=== PATIENT | female | born 1945 | race Two or more races ===

== ENCOUNTER 2022-02-15 19:22 | Emergency (ER) | payer OTHER ==
[2022-02-15 19:46] VITALS: BP 163/99; PULSE 93; RESP 18; TEMP 98.7; BMI 28.7
[2022-02-15] MEDS ORDERED: KETOROLAC TROMETHAMINE 15 MG/ML VIAL IVPUSH ONE (20:49)
[2022-02-15] MEDS ORDERED: ACETAMINOPHEN 325 MG TABLET (FP) PO ONE (20:49)
[2022-02-15] MEDS ORDERED: LIDOCAINE 5% TOPICAL PATCH TP ONE (20:49)
[2022-02-15] MEDS ORDERED: METHOCARBAMOL 500 MG TABLET PO ONE (20:50)
[2022-02-15] MEDS ORDERED: KETOROLAC TROMETHAMINE 15 MG/ML VIAL IM ONE (20:57)
[2022-02-15] MEDS ORDERED: METHOCARBAMOL 500 MG TABLET ONE (21:00)
[2022-02-15] MEDS ORDERED: ACETAMINOPHEN 325 MG TABLET (FP) ONE (21:00)
[2022-02-15] MEDS ORDERED: LIDOCAINE 5% TOPICAL PATCH ONE (21:01)
[2022-02-15] MEDS ORDERED: KETOROLAC TROMETHAMINE 15 MG/ML VIAL ONE (21:01)
[2022-02-15] MEDS ORDERED: LIDOCAINE PATCH REMOVAL MC SCH (22:00)
== END 2022-02-15 21:14 | disposition home or self-care (01) ==
LOC: JER 19:22
PROC: 3E0233Z Introduction of Anti-inflammatory into Muscle, Percutaneous Approach (ICD-10-PCS; principal; 2022-02-15)
DX: M25.561 Pain in right knee (principal); M25.562 Pain in left knee; M25.511 Pain in right shoulder
CPT/HCPCS: 99284-25

== ENCOUNTER 2022-04-23 06:10 | Day surgery (SDC) | payer OTHER ==
[2022-04-22 09:03] VITALS: BMI 21.1
[2022-04-23] MEDS ORDERED: CELECOXIB 200 MG CAPSULE PO ONE (07:09)
[2022-04-23] MEDS ORDERED: TRANEXAMIC ACID 1000 MG/10 ML VIAL IVPUSH ONE (07:09)
[2022-04-23] MEDS ORDERED: CEFAZOLIN 2 GM in DEXTROSE 5%-WATER - 50 ML IVPB ONE (07:09)
[2022-04-23] MEDS ORDERED: ceFAZolin SODIUM 1 GM VIAL ONE ×3 (07:15→08:24)
[2022-04-23] MEDS ORDERED: VANCOMYCIN 1,000 MG VIAL (RESTRICTED TO ID ONLY) ONE (07:15)
[2022-04-23] MEDS ORDERED: BUPIVACAINE HCL/PF 0.5% (5MG/ML) 10 ML VIAL ONE (07:22)
[2022-04-23] MEDS ORDERED: SODIUM CHLORIDE 0.9% P/F 10 ML VIAL IJ ONE (07:22)
[2022-04-23] MEDS ORDERED: BUPIVACAINE LIPOSOME/PF (EXPAREL) 266 MG/20 ML VIAL ONE (07:22)
[2022-04-23] MEDS ORDERED: MIDAZOLAM HCL 2 MG/2 ML SINGLE DOSE VIAL ONE (07:22)
[2022-04-23] MEDS ORDERED: ONDANSETRON 4 MG/2 ML VIAL IVPUSH PRN ×2 (07:49→10:16)
[2022-04-23] MEDS ORDERED: LACTATED RINGERS SOLUTION 1,000 ML IV SCH (08:00)
[2022-04-23] MEDS ORDERED: PROPOFOL 60 ML ONE (08:24)
[2022-04-23] MEDS ORDERED: PHENYLEPHRINE HCL 10 MG/1 ML SINGLE DOSE VIAL ONE (08:24)
[2022-04-23] MEDS ORDERED: SUCCINYLCHOLINE CHLORIDE 200 MG/10 ML SYRINGE ONE (08:24)
[2022-04-23] MEDS ORDERED: DEXAMETHASONE SOD PHOSPHATE 4 MG/1 ML VIAL ONE (08:24)
[2022-04-23] MEDS ORDERED: KETOROLAC TROMETHAMINE 30 MG/1 ML VIAL ONE (08:24)
[2022-04-23] MEDS ORDERED: oxyCODONE HCL 5 MG TABLET PO PRN ×2 (10:16)
[2022-04-23] MEDS: CEFAZOLIN 2 GM in DEXTROSE 5%-WATER - 50 ML IVPB SCH (18:22)
[2022-04-23] MEDS ORDERED: LORazepam 2 MG/ML SDV VIAL IVPUSH ONE (21:49)
[2022-04-23] MEDS: LABETALOL HCL 100 MG TABLET (FP) PO SCH (22:00)
[2022-04-23] MEDS: SENNOSIDES/DOCUSATE COMBO (SENNA PLUS) TABLET (UD) PO SCH (22:00)
[2022-04-23] MEDS: MULTIVITAMINS (DAILY MVI) TABLET (FP) PO SCH (22:34)
[2022-04-23] MEDS: PANTOPRAZOLE 40 MG TABLET PO SCH (22:34)
[2022-04-23] MEDS: ACETAMINOPHEN 500 MG TABLET (FP) PO SCH ×2 (22:34→22:37)
[2022-04-24] MEDS: CEFAZOLIN 2 GM in DEXTROSE 5%-WATER - 50 ML IVPB SCH
[2022-04-24] MEDS ORDERED: HALOPERIDOL LACTATE 5 MG/ML IM ONE ×3 (00:01→04:36)
[2022-04-24] MEDS: HALOPERIDOL LACTATE 5 MG/ML IM ONE ×2 (00:05→00:06)
[2022-04-24] MEDS: ACETAMINOPHEN 500 MG TABLET (FP) PO SCH ×4 (04:30→23:22)
[2022-04-24] MEDS ORDERED: LORazepam 2 MG/ML SDV VIAL IVPUSH ONE (04:34)
[2022-04-24] MEDS: LABETALOL HCL 100 MG TABLET (FP) PO SCH ×2 (09:15→21:48)
[2022-04-24] MEDS: ASPIRIN 325 MG TABLET PO SCH (09:15)
[2022-04-24 10:52] LABS: HEMATOCRIT 22.6 % (32.4-45.2); HEMOGLOBIN 7.6 G/dL (10.7-15.3); MCH 31.7 pg (25.7-33.7); MCHC 33.8 g/dl (32.0-36.0); MEAN CELL VOLUME 93.7 fl (80-96); MEAN PLT VOLUME 8.7 fl (7.5-11.1); PLATELET COUNT 176.4 10^3/uL (134-434); RBC 2.41 10^6/uL (3.60-5.2); RDW 13.9 % (11.6-15.6); WHITE BLOOD COUNT 7.8 10^3/uL (4.0-10.8)
[2022-04-24 10:57] LABS: ALBUMIN 3.3 g/dl (3.4-5.0); BILIRUBIN,TOTAL 0.7 mg/dl (0.2-1); CALCIUM 8.5 mg/dl (8.5-10); CREATININE 1.4 mg/dl (0.55-1.3); TOT PROT 5.8 g/dl (6.4-8.2)
[2022-04-24 11:59] LABS: PLATELET ESTIMATE ADEQUATE
[2022-04-24 12:41] LABS: EPITHELIAL CELLS MANY /hpf
[2022-04-24] MEDS: SENNOSIDES/DOCUSATE COMBO (SENNA PLUS) TABLET (UD) PO SCH ×2 (13:19→21:52)
[2022-04-24] MEDS: PANTOPRAZOLE 40 MG TABLET PO SCH (13:20)
[2022-04-24] MEDS: MULTIVITAMINS (DAILY MVI) TABLET (FP) PO SCH (13:20)
[2022-04-24] MEDS: ACETAMINOPHEN 1000 MG/100 ML BAG IVPB PRN ×2 (15:00→21:48)
[2022-04-24] MEDS ORDERED: IRON SUCROSE INJECTION 200 MG in SODIUM CHLORIDE 90 ML IVPB ONE (18:00)
[2022-04-25] MEDS: ACETAMINOPHEN 500 MG TABLET (FP) PO SCH ×5 (08:14→22:02)
[2022-04-25] MEDS: ASPIRIN 325 MG TABLET PO SCH (08:19)
[2022-04-25 08:35] LABS: ALBUMIN 3.2 g/dl (3.4-5.0); BILIRUBIN,TOTAL 1.1 mg/dl (0.2-1); CALCIUM 8.6 mg/dl (8.5-10); CREATININE 1.5 mg/dl (0.55-1.3); TOT PROT 5.7 g/dl (6.4-8.2)
[2022-04-25 08:57] LABS: HEMATOCRIT 26.4 % (32.4-45.2); HEMOGLOBIN 8.8 G/dL (10.7-15.3); MCH 31.2 pg (25.7-33.7); MCHC 33.4 g/dl (32.0-36.0); MEAN CELL VOLUME 93.3 fl (80-96); MEAN PLT VOLUME 9.3 fl (7.5-11.1); RBC 2.83 10^6/uL (3.60-5.2); RDW 14.4 % (11.6-15.6)
[2022-04-25] MEDS: PANTOPRAZOLE 40 MG TABLET PO SCH (09:31)
[2022-04-25] MEDS: MULTIVITAMINS (DAILY MVI) TABLET (FP) PO SCH (09:32)
[2022-04-25] MEDS: LABETALOL HCL 100 MG TABLET (FP) PO SCH ×2 (09:32→22:03)
[2022-04-25] MEDS: SENNOSIDES/DOCUSATE COMBO (SENNA PLUS) TABLET (UD) PO SCH ×2 (09:33→22:03)
[2022-04-25 11:51] LABS: PLATELET ESTIMATE ADEQUATE
[2022-04-25] MEDS ORDERED: D5-1/2NS+20 MEQ KCL - 20 MEQ/1,000 ML INFUS.BAG IV SCH (15:15)
[2022-04-25] MEDS: PANTOPRAZOLE SODIUM 40 MG VIAL IVPUSH SCH (16:01)
[2022-04-26] MEDS: ACETAMINOPHEN 500 MG TABLET (FP) PO SCH (04:30)
[2022-04-26] MEDS: ASPIRIN 325 MG TABLET PO SCH (08:12)
[2022-04-26 08:36] LABS: ALBUMIN 2.9 g/dl (3.4-5.0); BILIRUBIN,TOTAL 1.3 mg/dl (0.2-1); CALCIUM 8.4 mg/dl (8.5-10); CREATININE 1.7 mg/dl (0.55-1.3); TOT PROT 5.5 g/dl (6.4-8.2)
[2022-04-26] MEDS: SENNOSIDES/DOCUSATE COMBO (SENNA PLUS) TABLET (UD) PO SCH (09:03)
[2022-04-26] MEDS: LABETALOL HCL 100 MG TABLET (FP) PO SCH (09:03)
[2022-04-26] MEDS: MULTIVITAMINS (DAILY MVI) TABLET (FP) PO SCH (09:03)
[2022-04-26] MEDS: PANTOPRAZOLE SODIUM 40 MG VIAL IVPUSH SCH (09:03)
[2022-04-26 10:05] LABS: BASO % 0.3 % (0-2.0); HEMATOCRIT 25.4 % (32.4-45.2); HEMOGLOBIN 8.3 GM/dL (10.7-15.3); LYMPH % 16.6 % (8-40); MCH 30.6 pg (25.7-33.7); MCHC 32.8 g/dl (32.0-36.0); MEAN CELL VOLUME 93.3 fl (80-96); MEAN PLT VOLUME 9.5 fl (7.5-11.1); MONO % 12.1 % (3.8-10.2); PLATELET COUNT 204 10^3/uL (134-434); RBC 2.72 M/mm3 (3.60-5.2); RDW 14.2 % (11.6-15.6)
[2022-04-26] MEDS ORDERED: D5-NS + 20 MEQ KCL - 20 MEQ/1,000 ML INFUS.BAG IV SCH (10:45)
[2022-04-26] MEDS ORDERED: ACETAMINOPHEN 325 MG TABLET (FP) PO PRN (12:37)
[2022-04-26 14:30] VITALS: BP 162/92; PULSE 107; RESP 16; TEMP 98.5
== END 2022-04-26 16:47 | disposition home health service (06) ==
LOC: FM/S 06:10 → FASUSAT 06:10 → FM/S 11:42 → FASUSAT 04-26 16:47
PROVIDERS: ATTEND Orthopaedic Surgery
PROC: 8E0Y0CZ Robotic Assisted Procedure of Lower Extremity, Open Approach (ICD-10-PCS; 2022-04-23)
PROC: 0SRC0JA Replacement of Right Knee Joint with Synthetic Substitute, Uncemented, Open Approach (ICD-10-PCS; principal; 2022-04-23 08:33)
DX: M17.11 Unilateral primary osteoarthritis, right knee (principal); I10 Essential (primary) hypertension; I25.2 Old myocardial infarction; N17.9 Acute kidney failure, unspecified; E87.1 Hypo-osmolality and hyponatremia; E87.22 Chronic metabolic acidosis
CPT/HCPCS: 20985; 27447; C1776; S2900; 36415; 70450-TC; 71045-TC-FY; 73560-TC-RT-FY; 76775-TC; 76856-TC; 80053; 81003; 81015; 82607; 82728; 82962; 83540; 83550; 83690; 84443; 84484; 85025; 86780; 87086; 93005; 94760; 97010-GP; 97116-GP; 97162-GP; C1713; J1756

== ENCOUNTER 2022-07-04 07:37 | Inpatient (IN) | payer OTHER ==
[2022-07-04] MEDS ORDERED: LIDOCAINE 5% TOPICAL PATCH TP ONE (08:41)
[2022-07-04] MEDS ORDERED: ACETAMINOPHEN 1000 MG/100 ML BAG IVPB ONE (08:41)
[2022-07-04] MEDS ORDERED: ACETAMINOPHEN INJECTION 100 ML IVPB ONE (09:04)
[2022-07-04] MEDS ORDERED: LIDOCAINE 5% TOPICAL PATCH ONE (09:04)
[2022-07-04 10:11] LABS: BASO % 0.4 % (0-2.0); EOS % 1.8 % (0-4.5); HEMATOCRIT 34.3 % (32.4-45.2); HEMOGLOBIN 11.5 GM/dL (10.7-15.3); LYMPH % 22.4 % (8-40); MCH 31.5 pg (25.7-33.7); MCHC 33.6 g/dl (32.0-36.0); MEAN CELL VOLUME 93.5 fl (80-96); MEAN PLT VOLUME 8.6 fl (7.5-11.1); MONO % 10.3 % (3.8-10.2); NEUT % 65.1 % (42.8-82.8); PLATELET COUNT 278 10^3/uL (134-434); RBC 3.67 M/mm3 (3.60-5.2); RDW 14.8 % (11.6-15.6); WHITE BLOOD COUNT 7.6 K/mm3 (4.0-10.0)
[2022-07-04 10:31] LABS: CALCIUM 9.6 mg/dL (8.5-10.1)
[2022-07-04 10:32] LABS: ALBUMIN 4.2 g/dl (3.4-5.0); BLOOD UREA NITROGEN 13.5 mg/dL (7-18)
[2022-07-04 10:36] LABS: BILIRUBIN,TOTAL 0.7 mg/dL (0.2-1); TOT PROT 7.6 g/dl (6.4-8.2)
[2022-07-04 12:51] LABS: INR 1.03 (0.83-1.09); PROTHROMBIN TIME (PATIENT) 11.9 SEC (9.7-13.0)
[2022-07-04 12:53] LABS: ACTIVATED PTT 26.3 SECONDS (25.2-36.5)
[2022-07-04 13:05] LABS: CALCIUM 9.7 mg/dL (8.5-10.1)
[2022-07-04 13:06] LABS: BLOOD UREA NITROGEN 12.7 mg/dL (7-18)
[2022-07-04] MEDS ORDERED: morphine CARPU-JECT 4 MG/1 ML DISP.SYRIN IVPUSH ONE (16:01)
[2022-07-04] MEDS ORDERED: morphine SULFATE 4 MG/ML VIAL ONE (16:04)
[2022-07-04] MEDS ORDERED: LABETALOL HCL 100 MG TABLET (FP) PO ONE (16:10)
[2022-07-04] MEDS ORDERED: LABETALOL HCL 100 MG TABLET (FP) ONE (16:30)
[2022-07-04] MEDS ORDERED: ONDANSETRON 4 MG/2 ML VIAL IVPUSH ONE (17:23)
[2022-07-04] MEDS: LABETALOL HCL 100 MG TABLET (FP) PO SCH (21:25)
[2022-07-04] MEDS ORDERED: LIDOCAINE PATCH REMOVAL MC SCH (22:00)
[2022-07-05] MEDS ORDERED: ACETAMINOPHEN 325 MG TABLET (FP) PO ONE (03:45)
[2022-07-05] MEDS ORDERED: oxyCODONE HCL 5 MG TABLET PO ONE (03:45)
[2022-07-05 05:11] VITALS: BMI 20.2
[2022-07-05 08:57] LABS: HEMATOCRIT 33.8 % (32.4-45.2); HEMOGLOBIN 11.2 GM/dL (10.7-15.3); MCH 31.1 pg (25.7-33.7); MCHC 33.2 g/dl (32.0-36.0); MEAN CELL VOLUME 93.7 fl (80-96); MEAN PLT VOLUME 8.2 fl (7.5-11.1); PLATELET COUNT 266 10^3/uL (134-434); RDW 14.6 % (11.6-15.6); WHITE BLOOD COUNT 5.7 K/mm3 (4.0-10.0)
[2022-07-05 09:17] LABS: CALCIUM 9.5 mg/dL (8.5-10.1)
[2022-07-05 09:18] LABS: BLOOD UREA NITROGEN 16.4 mg/dL (7-18)
[2022-07-05 09:21] LABS: CREATININE 1.1 mg/dL (0.55-1.3)
[2022-07-05] MEDS: LABETALOL HCL 100 MG TABLET (FP) PO SCH (10:10)
[2022-07-05] MEDS: LIDOCAINE 5% TOPICAL PATCH TP SCH (13:21)
[2022-07-05] MEDS: ACETAMINOPHEN 325 MG TABLET (FP) PO PRN ×2 (13:22→22:22)
[2022-07-05] MEDS: ENOXAPARIN NA (PORCINE) 40 MG/0.4 ML DISP.SYRIN SQ SCH (13:27)
[2022-07-05] MEDS: NAPROXEN 500 MG TABLET PO PRN (15:37)
[2022-07-05] MEDS: LABETALOL HCL 200 MG TABLET (FP) PO SCH (22:23)
[2022-07-06] MEDS ORDERED: LIDOCAINE PATCH REMOVAL MC SCH (01:00)
[2022-07-06 02:37] VITALS: RESP 18
[2022-07-06] MEDS: LABETALOL HCL 200 MG TABLET (FP) PO SCH (09:06)
[2022-07-06] MEDS: LIDOCAINE 5% TOPICAL PATCH TP SCH (09:06)
[2022-07-06] MEDS: ENOXAPARIN NA (PORCINE) 40 MG/0.4 ML DISP.SYRIN SQ SCH (09:07)
[2022-07-06] MEDS: NAPROXEN 500 MG TABLET PO PRN ×2 (09:08→17:21)
[2022-07-06 10:44] VITALS: PULSE 83
[2022-07-06] MEDS ORDERED: amLODIPine BESYLATE 10 MG TABLET (FP) PO ONE (11:51)
[2022-07-06] MEDS ORDERED: amLODIPine BESYLATE 5 MG TABLET (FP) PO ONE (11:59)
[2022-07-06 13:35] VITALS: BP 150/84; TEMP 99.1
== END 2022-07-06 20:03 | disposition home or self-care (01) | DRG 184 ==
LOC: JER 07:37 → JERBED 15:50 → J6S 20:13
PROVIDERS: ADMIT Internal Medicine; ATTEND Internal Medicine
DX: S22.41XA Multiple fractures of ribs, right side, initial encounter for closed fracture (principal); J93.9 Pneumothorax, unspecified; J98.11 Atelectasis; W01.0XXA Fall on same level from slipping, tripping and stumbling without subsequent striking against object, initial encounter; Y93.89 Activity, other specified; Y92.009 Unspecified place in unspecified non-institutional (private) residence as the place of occurrence of the external cause; Y99.8 Other external cause status; I10 Essential (primary) hypertension
CPT/HCPCS: 0241U-QW; 36415; 70450-TC; 71045-TC-FY; 71260-TC; 72125-TC; 72131-TC; 73030-TC-RT-FY; 74177-TC; 80048; 80053; 84484; 85025; 85027; 85610; 85730; 93005; 93010; 93306-TC; 99285-25; C9803-CS; Q9967; U0003; U0005

== ENCOUNTER 2022-07-12 05:15 | Observation (INO) | payer OTHER ==
[2022-07-12] MEDS ORDERED: ONDANSETRON 4 MG/2 ML VIAL IVPUSH ONE (06:29)
[2022-07-12] MEDS ORDERED: SODIUM CHLORIDE 0.9% 500 ML INFUS.BAG IV ONE (06:29)
[2022-07-12] MEDS ORDERED: MECLIZINE HCL 25 MG TABLET (FP) PO ONE ×2 (06:29→12:13)
[2022-07-12] MEDS ORDERED: ACETAMINOPHEN 1000 MG/100 ML BAG IVPB ONE (06:30)
[2022-07-12 06:32] LABS: BASO % 0.7 % (0-2.0); EOS % 3.6 % (0-4.5); HEMATOCRIT 34.5 % (32.4-45.2); HEMOGLOBIN 11.3 GM/dL (10.7-15.3); LYMPH % 31.6 % (8-40); MCH 30.5 pg (25.7-33.7); MCHC 32.7 g/dl (32.0-36.0); MEAN CELL VOLUME 93.3 fl (80-96); MEAN PLT VOLUME 8.5 fl (7.5-11.1); MONO % 8.5 % (3.8-10.2); NEUT % 55.6 % (42.8-82.8); PLATELET COUNT 279 10^3/uL (134-434); RBC 3.69 M/mm3 (3.60-5.2); RDW 14.9 % (11.6-15.6)
[2022-07-12 06:39] LABS: INR 1.03 (0.83-1.09)
[2022-07-12] MEDS ORDERED: MECLIZINE HCL 25 MG TABLET (FP) ONE ×2 (06:41→13:26)
[2022-07-12] MEDS ORDERED: ACETAMINOPHEN INJECTION 100 ML IVPB ONE (06:41)
[2022-07-12 06:42] LABS: ACTIVATED PTT 25.6 SECONDS (25.2-36.5)
[2022-07-12] MEDS ORDERED: ONDANSETRON 4 MG/2 ML VIAL ONE (06:42)
[2022-07-12 06:55] LABS: ALBUMIN 4.2 g/dl (3.4-5.0); CALCIUM 9.8 mg/dL (8.5-10.1)
[2022-07-12 06:57] LABS: BLOOD UREA NITROGEN 18.4 mg/dL (7-18)
[2022-07-12 06:59] LABS: CREATININE 1.2 mg/dL (0.55-1.3)
[2022-07-12 07:01] LABS: BILIRUBIN,TOTAL 0.4 mg/dL (0.2-1); TOT PROT 7.2 g/dl (6.4-8.2)
[2022-07-12 07:54] LABS: EPI CELLS 12 /uL (0-25.1); HYALINE CASTS 0 /uL (0-3.1); PH,URINE 6.5 (5.0-8.0); URINE APPEARANCE CLEAR; URINE BACTERIA 93 /uL (0-1359); URINE BILIRUBIN NEGATIVE (NEGATIVE); URINE COLOR YELLOW; URINE GLUCOSE (UA) NEGATIVE (NEGATIVE); URINE KETONE NEGATIVE (NEGATIVE); URINE LEUK ESTERASE TRACE (NEGATIVE); URINE NITRITE NEGATIVE (NEGATIVE); URINE PROTEIN TRACE (NEGATIVE); URINE RBC 3 /uL (0-23.9); URINE UROBILINOGEN 0.2 mg/dL (0.2-1.0); URINE WBC 6 /uL (0-25.8)
[2022-07-12] MEDS ORDERED: CEFTRIAXONE 1,000 MG in DEXTROSE 5%-WATER - 50 ML IVPB ONE (11:56)
[2022-07-12] MEDS ORDERED: HALOPERIDOL LACTATE 5 MG/ML IM ONE (12:12)
[2022-07-12] MEDS ORDERED: METOCLOPRAMIDE HCL INJECTION 10 MG/2 ML VIAL IVPB ONE (12:13)
[2022-07-12] MEDS ORDERED: LORazepam 2 MG/ML SDV VIAL IVPUSH ONE (12:55)
[2022-07-12] MEDS ORDERED: ACETAMINOPHEN 325 MG TABLET (FP) PO PRN (12:58)
[2022-07-12] MEDS ORDERED: METOCLOPRAMIDE HCL INJECTION 10 MG/2 ML VIAL ONE (13:26)
[2022-07-12] MEDS ORDERED: LORazepam 0.5 MG TABLET ONE (13:26)
[2022-07-12] MEDS ORDERED: FUROSEMIDE 40 MG/4 ML INJECTABLE VIAL ONE (13:27)
[2022-07-12] MEDS ORDERED: CEFTRIAXONE 1 GM/50 ML BAG ONE (13:27)
[2022-07-12] MEDS: FUROSEMIDE 40 MG TABLET (FP) PO SCH (14:04)
[2022-07-12] MEDS: LABETALOL HCL 200 MG TABLET (FP) PO SCH (21:06)
[2022-07-12] MEDS: HEPARIN NA (PORCINE) 5,000 UNITS/ML 1ML VIAL SQ SCH (21:06)
[2022-07-12] MEDS: LIDOCAINE PATCH REMOVAL MC SCH (21:49)
[2022-07-13] MEDS: FUROSEMIDE 40 MG TABLET (FP) PO SCH (10:26)
[2022-07-13] MEDS: HEPARIN NA (PORCINE) 5,000 UNITS/ML 1ML VIAL SQ SCH ×2 (10:27→21:19)
[2022-07-13] MEDS: amLODIPine BESYLATE 5 MG TABLET (FP) PO SCH (10:27)
[2022-07-13] MEDS: LABETALOL HCL 200 MG TABLET (FP) PO SCH ×2 (10:27→21:19)
[2022-07-13] MEDS: LIDOCAINE 5% TOPICAL PATCH TP SCH (10:27)
[2022-07-13] MEDS: SERTRALINE HCL 25 MG TABLET (FP) PO SCH (11:49)
[2022-07-13 12:52] LABS: MAGNESIUM 2.2 mg/dL (1.8-2.4)
[2022-07-13 13:00] LABS: N-TERMINAL BNP 601.3 pg/ml (5-450)
[2022-07-13 14:15] VITALS: BMI 22.2
[2022-07-13] MEDS: LIDOCAINE PATCH REMOVAL MC SCH (21:19)
[2022-07-13] MEDS: MECLIZINE HCL 25 MG TABLET (FP) PO PRN (23:39)
[2022-07-14 06:03] VITALS: RESP 18
[2022-07-14 07:34] LABS: CALCIUM 9.8 mg/dL (8.5-10.1)
[2022-07-14 07:35] LABS: BLOOD UREA NITROGEN 36.6 mg/dL (7-18)
[2022-07-14 07:37] LABS: CREATININE 1.5 mg/dL (0.55-1.3)
[2022-07-14] MEDS: HEPARIN NA (PORCINE) 5,000 UNITS/ML 1ML VIAL SQ SCH (10:07)
[2022-07-14] MEDS: amLODIPine BESYLATE 5 MG TABLET (FP) PO SCH (10:07)
[2022-07-14] MEDS: SERTRALINE HCL 25 MG TABLET (FP) PO SCH (10:07)
[2022-07-14] MEDS: FUROSEMIDE 40 MG TABLET (FP) PO SCH (10:07)
[2022-07-14] MEDS: LABETALOL HCL 200 MG TABLET (FP) PO SCH (10:07)
[2022-07-14] MEDS: MECLIZINE HCL 25 MG TABLET (FP) PO PRN (10:08)
[2022-07-14] MEDS: LIDOCAINE 5% TOPICAL PATCH TP SCH (10:08)
[2022-07-14] MEDS ORDERED: SODIUM CHLORIDE 0.45% 1,000 ML IV SCH (10:45)
[2022-07-14 15:00] VITALS: BP 132/80; PULSE 95; TEMP 97.7
== END 2022-07-14 18:26 | disposition home or self-care (01) ==
LOC: JER 05:15 → JERBED 09:56 → J4W 15:19
PROVIDERS: ADMIT Internal Medicine; ATTEND Internal Medicine
PROC: 3E033NZ Introduction of Analgesics, Hypnotics, Sedatives into Peripheral Vein, Percutaneous Approach (ICD-10-PCS; principal; 2022-07-12)
PROC: 3E03329 Introduction of Other Anti-infective into Peripheral Vein, Percutaneous Approach (ICD-10-PCS; 2022-07-12)
PROC: 3E023GC Introduction of Other Therapeutic Substance into Muscle, Percutaneous Approach (ICD-10-PCS; 2022-07-12)
PROC: 3E023GC Introduction of Other Therapeutic Substance into Muscle, Percutaneous Approach (ICD-10-PCS; 2022-07-12)
PROC: 3E03329 Introduction of Other Anti-infective into Peripheral Vein, Percutaneous Approach (ICD-10-PCS; 2022-07-12)
PROC: 3E0337Z Introduction of Electrolytic and Water Balance Substance into Peripheral Vein, Percutaneous Approach (ICD-10-PCS; 2022-07-12)
DX: J93.83 Other pneumothorax (principal); R07.81 Pleurodynia; I10 Essential (primary) hypertension; F41.8 Other specified anxiety disorders; R42 Dizziness and giddiness; S22.49XS Multiple fractures of ribs, unspecified side, sequela; W18.39XS Other fall on same level, sequela; R07.9 Chest pain, unspecified
CPT/HCPCS: 0241U-QW; 36415; 70450-TC; 70551-TC; 71045-TC-FY; 80048; 80053; 80061; 81003; 82550; 82962; 83036; 83690; 83735; 83880; 84439; 84443; 84484; 85025; 85610; 85730; 87086; 87186; 93005; 93010; 94010; 96361; 96365; 96372; 96375; 97116-GP; 97162-GP; 99285-25; G0378; J1644

== ENCOUNTER 2022-10-20 16:29 | Observation (INO) | payer OTHER ==
[2022-10-20] MEDS ORDERED: METOPROLOL TARTRATE 25 MG TABLET (FP) PO ONE (17:30)
[2022-10-20] MEDS ORDERED: METOPROLOL TARTRATE 5 MG/5 ML VIAL IVPUSH ONE (17:44)
[2022-10-20] MEDS ORDERED: ACETAMINOPHEN 1000 MG/100 ML BAG IVPB ONE (17:44)
[2022-10-20] MEDS ORDERED: METOCLOPRAMIDE HCL INJECTION 10 MG/2 ML VIAL IVPUSH ONE (17:45)
[2022-10-20] MEDS ORDERED: METOCLOPRAMIDE HCL INJECTION 10 MG/2 ML VIAL ONE (18:19)
[2022-10-20] MEDS ORDERED: ACETAMINOPHEN INJECTION 100 ML IVPB ONE (18:19)
[2022-10-20] MEDS ORDERED: METOPROLOL TARTRATE 5 MG/5 ML VIAL ONE (18:19)
[2022-10-20 18:36] LABS: BASO % 0.4 % (0-2.0); EOS % 1.6 % (0-4.5); HEMATOCRIT 33.1 % (32.4-45.2); HEMOGLOBIN 11.1 GM/dL (10.7-15.3); LYMPH % 22.4 % (8-40); MCH 30.6 pg (25.7-33.7); MCHC 33.6 g/dl (32.0-36.0); MEAN CELL VOLUME 90.9 fl (80-96); MEAN PLT VOLUME 7.6 fl (7.5-11.1); MONO % 9.1 % (3.8-10.2); NEUT % 66.5 % (42.8-82.8); PLATELET COUNT 277 10^3/uL (134-434); RBC 3.64 M/mm3 (3.60-5.2); RDW 14.8 % (11.6-15.6)
[2022-10-20 18:36] LABS: PH,URINE 5.5 (5.0-8.0); URINE APPEARANCE CLEAR; URINE BILIRUBIN NEGATIVE (NEGATIVE); URINE COLOR YELLOW; URINE GLUCOSE (UA) NEGATIVE (NEGATIVE); URINE KETONE NEGATIVE (NEGATIVE); URINE LEUK ESTERASE NEGATIVE (NEGATIVE); URINE NITRITE NEGATIVE (NEGATIVE); URINE PROTEIN NEGATIVE (NEGATIVE); URINE UROBILINOGEN 0.2 mg/dL (0.2-1.0)
[2022-10-20 18:47] LABS: PROTHROMBIN TIME (PATIENT) 11.6 SEC (9.7-13.0)
[2022-10-20 18:50] LABS: ACTIVATED PTT 24.6 SECONDS (25.2-36.5)
[2022-10-20 18:56] LABS: CALCIUM 9.4 mg/dL (8.5-10.1); MAGNESIUM 1.7 mg/dL (1.8-2.4)
[2022-10-20 18:57] LABS: ALBUMIN 4.1 g/dl (3.4-5.0); BLOOD UREA NITROGEN 18.8 mg/dL (7-18)
[2022-10-20 18:59] LABS: CREATININE 1.1 mg/dL (0.55-1.3)
[2022-10-20 19:01] LABS: BILIRUBIN,TOTAL 0.2 mg/dL (0.2-1); TOT PROT 7.1 g/dl (6.4-8.2)
[2022-10-20] MEDS ORDERED: MAGNESIUM SULF 50% (8.12 MEQ/2 ML-1 GM VIAL) IVPB ONE (20:10)
[2022-10-20] MEDS ORDERED: MAGNESIUM SULFATE IN WATER 2 GM/50 ML IVPB IVPB ONE (20:22)
[2022-10-20] MEDS ORDERED: DOCUSATE SODIUM 100 MG CAPSULE (FP) PO PRN (20:33)
[2022-10-20] MEDS: ACETAMINOPHEN 325 MG TABLET (FP) PO PRN (23:43)
[2022-10-21 00:10] VITALS: BMI 23.4
[2022-10-21 08:09] LABS: BASO % 0.8 % (0-2.0); EOS % 4.2 % (0-4.5); HEMATOCRIT 34.2 % (32.4-45.2); HEMOGLOBIN 11.3 GM/dL (10.7-15.3); LYMPH % 29.9 % (8-40); MCH 30.6 pg (25.7-33.7); MEAN CELL VOLUME 92.8 fl (80-96); MEAN PLT VOLUME 8.4 fl (7.5-11.1); MONO % 10.3 % (3.8-10.2); NEUT % 54.8 % (42.8-82.8); PLATELET COUNT 279 10^3/uL (134-434); RBC 3.68 M/mm3 (3.60-5.2); RDW 14.8 % (11.6-15.6); WHITE BLOOD COUNT 5.9 K/mm3 (4.0-10.0)
[2022-10-21 08:40] LABS: CALCIUM 9.3 mg/dL (8.5-10.1)
[2022-10-21 08:41] LABS: BLOOD UREA NITROGEN 15.4 mg/dL (7-18); MAGNESIUM 2.2 mg/dL (1.8-2.4)
[2022-10-21 08:45] LABS: PHOSPHOROUS 3.2 mg/dL (2.5-4.9)
[2022-10-21] MEDS ORDERED: HEPARIN NA (PORCINE) 5,000 UNITS/ML 1ML VIAL SQ SCH (10:00)
[2022-10-21] MEDS ORDERED: amLODIPine BESYLATE 10 MG TABLET (FP) PO SCH (10:00)
[2022-10-21] MEDS: SERTRALINE HCL 25 MG TABLET (FP) PO SCH (10:04)
[2022-10-21] MEDS ORDERED: ACETAMINOPHEN 325 MG TABLET (FP) ONE (12:48)
[2022-10-21] MEDS: ACETAMINOPHEN 325 MG TABLET (FP) PO PRN ×2 (13:03→18:46)
[2022-10-21 14:05] VITALS: RESP 18
[2022-10-21] MEDS: APIXABAN 5 MG TABLET PO SCH ×2 (15:36→21:26)
[2022-10-21] MEDS ORDERED: dilTIAZem HCL 30 MG TABLET PO ONE ×2 (16:10→18:45)
[2022-10-21] MEDS: MECLIZINE HCL 25 MG TABLET (FP) PO PRN (21:26)
[2022-10-22] MEDS: MECLIZINE HCL 25 MG TABLET (FP) PO PRN ×2 (06:31→22:00)
[2022-10-22 08:06] LABS: CHOLESTEROL 189 mg/dL (50-200)
[2022-10-22 08:07] LABS: LDL CHOLESTEROL (ONLY SJRH) 98 mg/dL (5-100)
[2022-10-22 08:10] LABS: HDL CHOLESTEROL 77 mg/dL (40-60)
[2022-10-22] MEDS: APIXABAN 5 MG TABLET PO SCH ×2 (09:17→22:00)
[2022-10-22] MEDS: SERTRALINE HCL 25 MG TABLET (FP) PO SCH (09:17)
[2022-10-22] MEDS: METOPROLOL TARTRATE 25 MG TABLET (FP) PO SCH ×2 (11:42→22:11)
[2022-10-22] MEDS: ACETAMINOPHEN 325 MG TABLET (FP) PO PRN ×2 (15:38→21:58)
[2022-10-23] MEDS: MECLIZINE HCL 25 MG TABLET (FP) PO PRN (06:08)
[2022-10-23 09:53] VITALS: BP 154/85; PULSE 92; TEMP 99.1
[2022-10-23] MEDS: APIXABAN 5 MG TABLET PO SCH (09:59)
[2022-10-23] MEDS: METOPROLOL TARTRATE 25 MG TABLET (FP) PO SCH (09:59)
[2022-10-23] MEDS: SERTRALINE HCL 25 MG TABLET (FP) PO SCH (09:59)
== END 2022-10-23 14:36 | disposition home or self-care (01) ==
LOC: JER 16:29 → JERBED 17:45 → INTOOBSV 17:45 → UNDOADMOB 17:45 → JERBED 22:51 → J4W 22:51 → JERBED 10-21 12:54 → J7W 10-22 15:29 → J4W 10-22 15:34
PROVIDERS: ADMIT Internal Medicine; ATTEND Internal Medicine
PROC: 3E033NZ Introduction of Analgesics, Hypnotics, Sedatives into Peripheral Vein, Percutaneous Approach (ICD-10-PCS; principal; 2022-10-21)
PROC: 3E023GC Introduction of Other Therapeutic Substance into Muscle, Percutaneous Approach (ICD-10-PCS; 2022-10-21)
PROC: 3E033GC Introduction of Other Therapeutic Substance into Peripheral Vein, Percutaneous Approach (ICD-10-PCS; 2022-10-21)
DX: I48.91 Unspecified atrial fibrillation (principal); I10 Essential (primary) hypertension; M19.90 Unspecified osteoarthritis, unspecified site; I25.2 Old myocardial infarction; D64.9 Anemia, unspecified; N17.9 Acute kidney failure, unspecified; D62 Acute posthemorrhagic anemia; F41.9 Anxiety disorder, unspecified; K83.1 Obstruction of bile duct; Z90.49 Acquired absence of other specified parts of digestive tract
CPT/HCPCS: 36415; 70450-TC; 71046-TC-FY; 80048; 80053; 80061; 81003; 83735; 83880; 84100; 84439; 84443; 84484; 85025; 85610; 85730; 87086; 93005; 93010; 93306-TC; 96372; 96374; 96375; 99285-25; G0378; J1644

== ENCOUNTER 2023-04-17 08:35 | Emergency (ER) | payer OTHER ==
[2023-04-17 08:55] VITALS: TEMP 98; BMI 22.4
[2023-04-17] MEDS ORDERED: MECLIZINE HCL 25 MG TABLET (FP) PO ONE ×2 (09:53→14:02)
[2023-04-17] MEDS ORDERED: MECLIZINE HCL 25 MG TABLET (FP) ONE ×2 (10:05→14:05)
[2023-04-17 10:08] LABS: BASO % 0.4 % (0-2.0); EOS % 2.5 % (0-4.5); HEMATOCRIT 33.8 % (32.4-45.2); LYMPH % 21.7 % (8-40); MCH 30.3 pg (25.7-33.7); MCHC 32.7 g/dl (32.0-36.0); MEAN CELL VOLUME 92.7 fl (80-96); MEAN PLT VOLUME 8.1 fl (7.5-11.1); MONO % 9.3 % (3.8-10.2); NEUT % 66.1 % (42.8-82.8); PLATELET COUNT 284 10^3/uL (134-434); RBC 3.64 M/mm3 (3.60-5.2); RDW 14.3 % (11.6-15.6); WHITE BLOOD COUNT 7.4 K/mm3 (4.0-10.0)
[2023-04-17 10:16] LABS: INR 1.02 (0.83-1.09); PROTHROMBIN TIME (PATIENT) 11.8 SEC (9.7-13.0)
[2023-04-17 10:18] LABS: ACTIVATED PTT 25.5 SECONDS (25.2-36.5)
[2023-04-17 10:23] LABS: POTASSIUM 4.4 mmol/L (3.5-5.1)
[2023-04-17 10:27] LABS: ALBUMIN 3.6 g/dl (3.4-5.0); BLOOD UREA NITROGEN 15.6 mg/dL (7-18); CALCIUM 9.6 mg/dL (8.5-10.1)
[2023-04-17 10:30] LABS: CREATININE 1.2 mg/dL (0.55-1.3)
[2023-04-17 10:32] LABS: BILIRUBIN,TOTAL 0.5 mg/dL (0.2-1)
[2023-04-17 14:03] VITALS: RESP 19
[2023-04-17 14:18] VITALS: BP 186/119
[2023-04-17 14:21] VITALS: PULSE 89
== END 2023-04-17 14:56 | disposition home or self-care (01) ==
LOC: JER 08:35
DX: R42 Dizziness and giddiness (principal); Z20.822 Contact with and (suspected) exposure to COVID-19
CPT/HCPCS: 0241U-QW; 36415; 71045-TC-FY; 80053; 84484; 85025; 85610; 85730; 93005; 93010; 99285-25

== ENCOUNTER 2023-06-07 07:05 | Emergency (ER) | payer OTHER ==
[2023-06-07] MEDS ORDERED: MECLIZINE HCL 25 MG TABLET (FP) PO ONE (07:51)
[2023-06-07] MEDS ORDERED: ACETAMINOPHEN 1000 MG/100 ML BAG IVPB ONE (07:55)
[2023-06-07] MEDS ORDERED: LACTATED RINGERS SOLUTION 1000 ML INFUS.BAG IV ONE (08:00)
[2023-06-07] MEDS ORDERED: amLODIPine BESYLATE 10 MG TABLET (FP) PO ONE (08:01)
[2023-06-07] MEDS ORDERED: MECLIZINE HCL 25 MG TABLET (FP) ONE (08:13)
[2023-06-07] MEDS ORDERED: amLODIPine BESYLATE 10 MG TABLET (FP) ONE (08:13)
[2023-06-07] MEDS ORDERED: ACETAMINOPHEN INJECTION 100 ML IVPB ONE ×2 (08:13→10:41)
[2023-06-07 08:39] VITALS: RESP 18
[2023-06-07 08:41] LABS: EPI CELLS >36 /uL (0-25.1); HYALINE CASTS 1 /uL (0-3.1); URINE APPEARANCE CLEAR; URINE BACTERIA 537 /uL (0-1359); URINE BILIRUBIN NEGATIVE (NEGATIVE); URINE COLOR YELLOW; URINE GLUCOSE (UA) NEGATIVE (NEGATIVE); URINE KETONE NEGATIVE (NEGATIVE); URINE LEUK ESTERASE 2+ (NEGATIVE); URINE NITRITE NEGATIVE (NEGATIVE); URINE PROTEIN 1+ (NEGATIVE); URINE RBC 11 /uL (0-23.9); URINE UROBILINOGEN 0.2 mg/dL (0.2-1.0); URINE WBC 46 /uL (0-25.8)
[2023-06-07 09:27] LABS: BASO % 0.5 % (0-2.0); EOS % 3.8 % (0-4.5); HEMATOCRIT 37.5 % (32.4-45.2); HEMOGLOBIN 12.6 GM/dL (10.7-15.3); LYMPH % 27.1 % (8-40); MCH 31.2 pg (25.7-33.7); MCHC 33.6 g/dl (32.0-36.0); MEAN CELL VOLUME 92.8 fl (80-96); MEAN PLT VOLUME 7.6 fl (7.5-11.1); MONO % 9.7 % (3.8-10.2); NEUT % 58.9 % (42.8-82.8); PLATELET COUNT 324 10^3/uL (134-434); RBC 4.04 M/mm3 (3.60-5.2); RDW 14.3 % (11.6-15.6); WHITE BLOOD COUNT 7.4 K/mm3 (4.0-10.0)
[2023-06-07 09:43] LABS: POTASSIUM 4.2 mmol/L (3.5-5.1)
[2023-06-07 09:45] LABS: ALBUMIN 4.2 g/dl (3.4-5.0); BLOOD UREA NITROGEN 17.5 mg/dL (7-18); CALCIUM 10.5 mg/dL (8.5-10.1)
[2023-06-07 09:46] LABS: MAGNESIUM 2.2 mg/dL (1.8-2.4)
[2023-06-07 09:49] LABS: CREATININE 1.1 mg/dL (0.55-1.3)
[2023-06-07 09:50] LABS: BILIRUBIN,TOTAL 0.3 mg/dL (0.2-1)
[2023-06-07 09:51] LABS: TOT PROT 8.4 g/dl (6.4-8.2)
[2023-06-07] MEDS ORDERED: CEFTRIAXONE 1 GM/50 ML BAG ONE (10:15)
[2023-06-07 11:06] VITALS: BP 167/98; PULSE 93; TEMP 97.5
== END 2023-06-07 12:20 | disposition home or self-care (01) ==
LOC: JER 07:05
PROC: 3E033NZ Introduction of Analgesics, Hypnotics, Sedatives into Peripheral Vein, Percutaneous Approach (ICD-10-PCS; principal; 2023-06-07)
PROC: 3E03329 Introduction of Other Anti-infective into Peripheral Vein, Percutaneous Approach (ICD-10-PCS; 2023-06-07)
DX: R06.02 Shortness of breath (principal); I10 Essential (primary) hypertension; R42 Dizziness and giddiness; R30.0 Dysuria; R35.0 Frequency of micturition; S09.90XA Unspecified injury of head, initial encounter; W19.XXXA Unspecified fall, initial encounter; Y93.E5 Activity, floor mopping and cleaning; Y92.89 Other specified places as the place of occurrence of the external cause; Z20.822 Contact with and (suspected) exposure to COVID-19
CPT/HCPCS: 0241U-QW; 36415; 70450-TC; 71045-TC-FY; 80053; 81003; 83735; 84100; 84443; 84484; 85025; 87086; 93005; 93010; 99285-25; J0131